=== PATIENT | male | born 1975 | race Caucasian/White ===

== ENCOUNTER 2017-05-23 09:25 | Day surgery (SDC) | payer BC ==
[~2017-05-23 09:25] MED LIST: BUPROPION XL300 MG PO; CYCLOBENZAPRINE10 MG PO; HYDROCODONE-APA1 TAB PO; LIPITOR80 MG PO; LISINOPRIL5 MG PO; PERCOCET 10/3251 TA1 PO; PROTONIX40 MG PO; ZANTAC150 MG PO
[2017-05-23 09:55] LABS: HEMATOCRIT 46.6 % (42.0-54.0); HEMOGLOBIN 15.5 g/dL (13.5-17.5); MCH 30.2 pg (26.0-34.0); MCHC 33.3 g/dL (31.0-37.0); MCV 90.7 fL (80.0-100.0); MEAN PLATELET VOLUME 10.4 fL (7.4-10.4); RBC 5.14 10x6/uL (4.20-6.10); WBC 6.6 10x3/uL (4.8-10.8)
[2017-05-23 12:25] VITALS: BP 131/84; BMI 30.5
--- NOTE | 2017-05-23 16:23 | NUR ---
PT REC'D TO ROOM VIA STRETCHER FROM PACU. AWAKE, ORIENTED. WATER REQUESTED AND PROVIDED. INCISION X 2 TO SCROTUM INTACT WITH MINIMAL BLEEDING OR D/C. KERLEX AND MESH UNDERWEAR IN PLACE.
--- NOTE | 2017-05-23 17:41 | OP ---
PATIENT NAME: HALIMA TUCKER MEDICAL RECORD: [id number] LOCATION:[facility] ADMISSION DATE: SURGEON: PRIYA PHAN MD DATE OF OPERATION: 05/23/2017 SURGEON: Priya Phan MD ANESTHESIA: MAC by Lamont Joy CRNA PREOPERATIVE DIAGNOSIS: Male sterilization. PROCEDURE: Vasectomy. SPECIMENS: Left vas and right vas. ESTIMATED BLOOD LOSS: Minimal. CLINICAL HISTORY: This is a 41-year-old male, who wishes to have elective male sterilization. He is otherwise in good health. 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 DESCRIPTION OF PROCEDURE: The patient was given IV sedation. He was placed in supine position and shaved, prepped and draped. The right vas was easily palpated. Through the skin, a towel clip was placed on the proximal and distal portions of the skin right underneath the vas deferens to entrap it. The area in between the 2 towel clips was then infiltrated with 0.25% Marcaine with epinephrine. The incision was made using a #15 blade. The skin incision was about 1 cm in length. A small right angle clamp was used to dissect out the vas deferens and then the tunicae were incised using needlepoint Bovie. Once the vas was stripped of its tunicae, then the proximal and distal ends were clamped with a hemostat. The intervening segment was cut using a 15 blade and sent to pathology as a specimen. A 2-0 Prolene tie was then placed on each of the vas ends and the vas ends were cauterized furthermore with the needle-point Bovie. The vas ends were then placed back in the hemiscrotum and then the hemiscrotum was closed using simple interrupted 4-0 Vicryl. The same procedure was repeated on the left vas. At the end of procedure, the scrotum had fluffs placed on it and mesh panties were placed. The patient will be going home today. I will see him in followup next week to check on his healing. TRANSINT:[id number] Voice Confirmation ID: [id number] DOCUMENT ID: [id number] PRIYA PHAN MD at 1745 CC: [id number] DICTATION DATE: 05/23/17 1617 MOWER SHARPENER: 05/23/17 1650 REG [facility] [address] [place] [address]
== END 2017-05-23 17:30 | disposition home or self-care (01) ==
LOC: D.OPS 09:25 → D.PAN 12:00 → D.OPS 12:00
PROVIDERS: Anesthesiology
DX: Z30.2 Encounter for sterilization (principal); I10 Essential (primary) hypertension; K21.9 Gastro-esophageal reflux disease without esophagitis; G47.30 Sleep apnea, unspecified; Z01.812 Encounter for preprocedural laboratory examination

== ENCOUNTER → 2018-04-24 08:09 | Outpatient (CLI) | payer BC | END | disposition home or self-care (01) | LOC: D.CT 08:09 | DX: R10.32 Left lower quadrant pain (principal) ==

== ENCOUNTER → 2018-07-31 06:57 | Outpatient (CLI) | payer BC | END | disposition home or self-care (01) | LOC: D.MRI 06:57 | DX: M77.12 Lateral epicondylitis, left elbow (principal) ==